=== PATIENT | female | born 1990 | race Caucasian/White ===

== ENCOUNTER 2023-03-28 06:58 | Outpatient (CLI) | payer BC, SELFPAY | END 2023-03-28 06:59 | disposition home or self-care (01) | LOC: AMB 04-03 16:02 | PROVIDERS: Visit Provider Internal Medicine | DX: F10.129 Alcohol abuse with intoxication, unspecified (principal); S09.90XA Unspecified injury of head, initial encounter; W01.0XXA Fall on same level from slipping, tripping and stumbling without subsequent striking against object, initial encounter; Y92.9 Unspecified place or not applicable | CPT/HCPCS: A0425; A0427 ==